=== PATIENT | male | born 1990 | race Caucasian/White ===

== ENCOUNTER 2019-04-26 14:54 | Emergency (ER) | payer OTHER ==
[~2019-04-26] VITALS: Ht 172.7 cm; Wt 77.1 kg
[2019-04-26] MEDS ORDERED: MORPHINE SULFATE 4 MG/ML VIAL. IV ONE (15:30)
[2019-04-26] MEDS ORDERED: IV NORMAL SALINE 1000ML BAG 1,000 ML IV ONE (15:30)
[2019-04-26] MEDS ORDERED: BACITRACIN TOPICAL OINT PACKET. TP ONE (15:45)
[2019-04-26] MEDS ORDERED: KETAMINE HCL IN NACL, ISO-OSM 50 MG/5 ML SYRINGE IV ONE (16:00)
[2019-04-26] MEDS ORDERED: HYDR-3164 PO (16:06)
[2019-04-26] MEDS ORDERED: BACI28.34 TP (16:07)
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
[2019-04-26 17:00] VITALS: BP 166/88
[2019-04-26] MEDS ORDERED: fentaNYL PF VIAL 100 MCG/2 ML VIAL ONE (17:04)
[2019-04-26] MEDS ORDERED: fentaNYL PF VIAL 100 MCG/2 ML VIAL IVP ONE (17:15)
== END 2019-04-26 17:35 | disposition home or self-care (01) ==
LOC: ER 14:54
DX: T20.26XA Burn of second degree of forehead and cheek, initial encounter (principal); T23.212A Burn of second degree of left thumb (nail), initial encounter; T23.261A Burn of second degree of back of right hand, initial encounter; X03.1XXA Exposure to smoke in controlled fire, not in building or structure, initial encounter; Y93.89 Activity, other specified; Y92.89 Other specified places as the place of occurrence of the external cause; Y99.8 Other external cause status
CPT/HCPCS: 16020; 96374; 96375; 99284; J2270; J3010; J7030